=== PATIENT | female | born 1985 | race Asian ===

== ENCOUNTER 2017-10-04 12:36 | Emergency (ER) | payer MEDICAID ==
[~2017-10-04] VITALS: Ht 154.9 cm; Wt 54.4 kg
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
--- NOTE | 2017-10-04 13:00 | NUR ---
MGMT CONSULTANT AT BEDSIDE FOR BLOOD DRAW.
[2017-10-04 13:06] LABS: BASOPHILS # (AUTO) 0.1 /CMM (0.0-0.2); BASOPHILS % (AUTO) 1.3 % (0.0-2.0); EOSINOPHILS # (AUTO) 0.1 /CMM (0.0-0.7); EOSINOPHILS % (AUTO) 0.9 % (0.0-6.0); HEMATOCRIT 40 % (33-45); HEMOGLOBIN 13.6 g/dL (11.5-14.8); LYMPHOCYTES # (AUTO) 2.1 /CMM (0.8-4.8); MEAN CORPUSCULAR HEMOGLOBIN 31 PG (26.0-33.0); MEAN CORPUSCULAR HGB CONC 34 g/dl (31.0-36.0); MEAN CORPUSCULAR VOLUME 89 fL (82-100); MONOCYTES # (AUTO) 0.2 /CMM (0.1-1.30); MONOCYTES % (AUTO) 3.5 % (2.0-12.0); NEUTROPHILS # (AUTO) 4.3 /CMM (1.8-8.9); NEUTROPHILS % (AUTO) 63.3 % (43.0-81.0); PLATELET COUNT (AUTO) 269 /CMM (150-450); RDW COEFFICIENT OF VARIATION 12.9 (11.5-15.0); RED BLOOD CELL COUNT(AUTO) 4.43 MIL/uL (4.0-5.2); WHITE BLOOD COUNT (AUTO) 6.8 K/uL (4.3-11.0)
[2017-10-04 13:19] LABS: CALCIUM, SERUM 8.7 mg/dL (8.5-10.1); CARBON DIOXIDE 26 mmol/L (21-32); CHLORIDE 106 mmol/L (98-107); CREATININE 0.6 mg/dL (0.6-1.3); GLUCOSE 95 mg/dL (74-106); POTASSIUM 3.6 mmol/L (3.5-5.1); SODIUM SERUM 140 mmol/L (136-145); UREA NITROGEN, BLOOD 6 mg/dL (7-18)
--- NOTE | 2017-10-04 13:22 | NUR ---
PAGED LOKI FOR EVAL
[2017-10-04 13:39] LABS: ALCOHOL, BLOOD < 3 mg/dL (0-0)
--- NOTE | 2017-10-04 14:16 | NUR ---
LOKI RN AT BEDSIDE FOR PSYCH EVAL.
[2017-10-04 17:18] VITALS: BP 125/76
--- NOTE | 2017-10-04 17:24 | NUR ---
REPORT GIVEN TO MIGUEL. PT AWAITING TRANSPORT TO [place].
--- NOTE | 2017-10-04 17:28 | NUR ---
SPOKE WITH [facility] FOR TRANSPORT. ETA OF 9:30 MIN GIVEN. TRANSPORT #[id number]
--- NOTE | 2017-10-04 19:44 | NUR ---
PT TRANSPORTED TO [place]. STABLE CONDITION.
== END 2017-10-04 19:47 ==
LOC: ER 12:40
DX: F31.9 Bipolar disorder, unspecified (principal); R45.851 Suicidal ideations; F17.200 Nicotine dependence, unspecified, uncomplicated
CPT/HCPCS: 36415; 80048; 80305; 84703; 85025; 99285; A4606; G0480; Z7610